=== PATIENT | female | born 1965 | race Caucasian/White ===

== ENCOUNTER → 2020-06-05 | Outpatient (CLI) | payer MEDICARE ==
[~2020-06-05] MED LIST: AMOX1TAB64 PO; BACL20TA PO; BUPR150T73 PO; CARB1TAB46 PO; DIAZ10TA4 PO; DULO60CA7 PO; FLEC100T PO; FLUD0.1T PO; LEVO75TA PO; MIDO10TA PO; OXYC-306 PO; PREG100C PO; PROM25TA10 PO; SUMA100T4 PO; THYR60TA4 PO; TIZA4CAP2 PO
== END | disposition home or self-care (01) ==
LOC: RAD 09:54
PROVIDERS: ATTEND Internal Medicine Infectious Disease
DX: N10 Acute pyelonephritis (principal); B96.20 Unspecified Escherichia coli [E. coli] as the cause of diseases classified elsewhere; Z79.2 Long term (current) use of antibiotics
CPT/HCPCS: 36573; C1751

== ENCOUNTER 2020-06-21 14:25 | Emergency (ER) | payer MEDICARE ==
[~2020-06-21] VITALS: Ht 175.3 cm; Wt 69.0 kg
[2020-06-21 14:33] VITALS: BP 137/97
[2020-06-21] MEDS ORDERED: ONDANSETRON 2MG/ML, 2ML IVPush ONE (15:00)
[2020-06-21] MEDS ORDERED: SODIUM CHLORIDE FLUSH 10ML SYR IVF ONE (15:00)
[2020-06-21] MEDS ORDERED: MORPHINE SULFATE 4 MG/ML, 1ML IVPush PRN (15:00)
[2020-06-21 15:07] LABS: BASOPHILS # (AUTO) 0.09 x10^3/uL (0-0.1); BASOPHILS % (AUTO) 2 % (0-1); EOSINOPHILS # (AUTO) 0.15 x10^3/uL (0-0.4); EOSINOPHILS % (AUTO) 4 % (1-7); LYMPHOCYTES # (AUTO) 1.13 x10^3/uL (1-3.4); LYMPHOCYTES % (AUTO) 27 % (22-44); MD NO; MEAN CORPUSCULAR HEMOGLOBIN 28.4 pg (27.0-34.8); MEAN CORPUSCULAR HGB CONC 33.7 g/dL (32.4-35.8); MEAN CORPUSCULAR VOLUME 84.4 fL (80-100); MEAN PLATELET VOLUME 9.9 fL (7.4-10.4); MONOCYTES # (AUTO) 0.35 x10^3/uL (0.2-0.8); MONOCYTES % (AUTO) 9 % (2-9); NEUTROPHILS # (AUTO) 2.43 x10^3/uL (1.8-6.8); NEUTROPHILS % (AUTO) 59 % (42-75); PLATELET COUNT 260 x10^3/uL (130-400); RED BLOOD COUNT 4.61 x10^6/uL (3.82-5.3); RED CELL DISTRIBUTION WIDTH 12.9 % (9.6-15.2)
[2020-06-21 15:17] LABS: ALANINE AMINOTRANSFERASE 59 U/L (12-78); ALBUMIN 4.1 g/dL (3.4-5.0); ANION GAP 6 mmol/L (5-15); CHLORIDE 105 mmol/L (98-107); CREATININE 0.85 mg/dL (0.55-1.02)
[2020-06-21 15:19] LABS: ALKALINE PHOSPHATASE 131 U/L (45-117); BILIRUBIN,TOTAL 0.6 mg/dL (0.2-1.0)
--- NOTE | 2020-06-21 17:40 | NUR ---
[employer]: PT TO ROOM FROM LOBBY
--- NOTE | 2020-06-21 18:25 | NUR ---
URINE COLLECTED VIA STRAIGHT CATH AND TAKEN TO LAB.
[2020-06-21] MEDS ORDERED: OXYcodone/APAP 10/325MG TABLET ONE (18:27)
[2020-06-21] MEDS ORDERED: OXYcodone/APAP 10/325MG TABLET PO ONE (18:30)
--- NOTE | 2020-06-21 18:31 | NUR ---
PT REFUSED PAIN MED.
== END 2020-06-21 19:15 | disposition home or self-care (01) ==
LOC: ED 17:52
DX: N39.0 Urinary tract infection, site not specified (principal); R10.9 Unspecified abdominal pain
CPT/HCPCS: 36415; 74176; 80053; 85025; 87086; 99284